=== PATIENT | male | born 1965 | race Hispanic/Latino ===

== ENCOUNTER → 2017-11-26 | Day surgery (SDC) | payer OTHER ==
[~2017-11-26] MED LIST: CEFAZOLIN SOD 1 GM VIAL ONE; DEXAMETHASONE SOD PHOS INJ 4 MG/ML VIAL ONE; FENTANYL CITRATE/PF 100MCG/2 ML INJ ONE; FISH OIL 1,0001 EAC2 PO; KETOROLAC TROMETHAMINE 30 MG/ML VIAL ONE; LIDOCAINE HCL 2% LOCAL INJ 5 ML SDV VIAL INJ ONE; MIDAZOLAM HCL 2 MG/2 ML VIAL ONE; NAPROXEN250 MG PO; ONDANSETRON HCL INJ 2 MG/ML VIAL ONE; PROPOFOL IV EMULSION 10 MG/ML 20 ML VIAL ONE; SEVOFLURANE INHAL SOLN 250 ML PEN BTL ONE
--- NOTE | 2017-11-26 14:09 | Operative Report ---
DATE OF PROCEDURE: November 26, 2017 SHOP MANAGER: Eliceo Ruffin PA-C The patient was brought to the operating room for induction of anesthesia. Throughout this case, my PA's assistance was necessary for retraction of soft tissue and positioning of the extremity. This allows for efficient and technically successful execution of the operation and is considered medically necessary. PREOPERATIVE DIAGNOSIS: Right knee medial meniscal tear. POSTOPERATIVE DIAGNOSES 1. Right knee medial meniscal tear. 2. Lateral meniscal tear. 3. 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 4. Thickened medial parapatellar plica. 5. Grade-3 chondromalacia of the trochlear groove. PROCEDURES 1. Right knee arthroscopy. 2. Partial medial meniscectomy. 3. Partial lateral meniscectomy. 4. Chondroplasty of the medial femoral condyle. 5. Resection of medial parapatellar plica. INDICATIONS: The patient is a 52-year-old gentleman who is complaining of distinct mechanical symptoms in his right knee. He stated he had an injury playing soccer. Since that time, his knee has been popping and giving him sharp pain. Clinic exam and MRI findings are consistent with a medial meniscal tear with secondary or associated underlying early wear of the knee. The findings and options have been discussed. The patient would like to proceed with arthroscopy. The risks and benefits were discussed. The possibility of some persistent arthritic pain was mentioned. He states he understands. DESCRIPTION OF PROCEDURE: The patient was brought to the operating room and placed under general anesthetic. His right lower extremity was prepped and draped in a sterile manner. He received prophylactic antibiotics in the holding area. A preoperative time out was performed. A proximal tourniquet was inflated to 300 mmHg. Standard arthroscopy portals were established. The knee was insufflated with sterile saline and systematically inspected. The suprapatellar pouch was unremarkable. The undersurface of the patella had some grade-1 changes of chondral fissuring. There was fairly extensive grade-3 chondromalacia of the trochlear groove but without notable unstable margins. The scope was placed into the medial compartment. There was indeed a large horizontal tear of the medial meniscus. There was a fairly large area of the posterior weightbearing surface of the medial femoral condyle of grade-2 to grade-3 chondromalacia. There were unstable margins of chondral flaps. A mechanical shaver was introduced into the knee, and the unstable margins were gently contoured. A partial medial meniscectomy was performed using a combination of biting forceps and mechanical shaver. Before and after photographs were taken. The cruciate ligaments were inspected and probed. They were unremarkable. The lateral compartment was inspected. The articular surfaces of the lateral femoral condyle and lateral tibial plateau were well preserved. There was radial tearing of the free edge of the lateral meniscus. This was debrided back to a stable margin using biting forceps. Again, before and after photographs were taken. The scope was returned to the suprapatellar pouch after thoroughly irrigating the knee. It was felt that this large, thickened, medial parapatellar plica should be resected. This was easily resected using a mechanical shaver. The arthroscopic instruments were then removed. The portal incisions were closed with nylon stitches. A sterile bandage was applied. The patient was extubated and transported to the recovery room in stable condition. Job#: [id number]
== END | disposition home or self-care (01) ==
LOC: OR 08:04
PROVIDERS: ATTEND Specialist
DX: S83.241A Other tear of medial meniscus, current injury, right knee, initial encounter (principal); S83.281A Other tear of lateral meniscus, current injury, right knee, initial encounter; M67.51 Plica syndrome, right knee; M94.261 Chondromalacia, right knee; Y93.66 Activity, soccer; Y99.8 Other external cause status; Z01.810 Encounter for preprocedural cardiovascular examination
CPT/HCPCS: 29880; 93005; J0690; J1100; J1885; J2001; J2250; J2405